=== PATIENT | female | born 1990 | race Caucasian/White ===

== ENCOUNTER 2016-08-16 00:37 | Emergency (ER) | payer OTHER ==
[~2016-08-16] VITALS: Ht 167.6 cm; Wt 127.0 kg
[~2016-08-16 00:37] MED LIST: DEPO150I IM; PERC5TAB12 PO; ZOFR4TAB3 SL
[2016-08-16 01:18] VITALS: BP 140/78; PULSE 83; RESP 18; TEMP 98.4; O2SAT 98
[2016-08-16 02:10] VITALS: O2SAT 98
[2016-08-16 02:12] LABS: AUTOMATED NEUTROPHIL # 8.2 TH/MM3 (1.8-7.7); BASOPHIL # 0.2 TH/MM3 (0-0.2); BASOPHIL % 1.5 % (0.0-2.0); EOSINOPHIL # 0.1 TH/MM3 (0-0.4); EOSINOPHIL % 0.7 % (0.0-4.0); HEMATOCRIT 42.6 % (35.0-46.0); LYMPH % 24.5 % (9.0-44.0); MEAN CELL VOLUME 81.9 FL (80.0-100.0); MEAN CORPUSCULAR HEMOGLOBIN 27.1 PG (27.0-34.0); MEAN CORPUSCULAR HGB CONC 33.1 % (32.0-36.0); MONO % 6.6 % (0.0-8.0); NEUT % 66.7 % (16.0-70.0); PLATELET COUNT 324 TH/MM3 (150-450); RED BLOOD COUNT 5.21 MIL/MM3 (4.00-5.30); RED CELL DISTRIBUTION WIDTH 12.4 % (11.6-17.2); WHITE BLOOD COUNT 12.4 TH/MM3 (4.0-11.0)
[2016-08-16 02:13] LABS: BLOOD, URINE NEG (NEG); GLUCOSE,URINE NEG (NEG); KETONE, URINE NEG (NEG); NITRITE,URINE NEG (NEG); PH, URINE 5.5 (5.0-8.5)
[2016-08-16 02:15] LABS: HEMO FLAGS DIFF FINAL
[2016-08-16 02:16] LABS: URINE COLOR YELLOW (YELLW/STRAW)
[2016-08-16 02:19] LABS: RBC, URINE 0-2 /hpf (0-3)
[2016-08-16 02:20] LABS: BACTERIA, URINE OCC /hpf; COMMENT (UR) CULT NOT INDICATED; CULTURE IF INDICATED CULT NOT INDICATED; SQUAMOUS EPITHELIAL CELL URINE > 8 /hpf (0-5)
[2016-08-16 02:22] LABS: CHLORIDE 107 MEQ/L (98-107); POTASSIUM 3.9 MEQ/L (3.5-5.1); SODIUM (NA) 141 MEQ/L (136-145)
[2016-08-16 02:26] LABS: ANION GAP 11 MEQ/L (5-15); BICARBONATE 22.7 MEQ/L (21.0-32.0)
[2016-08-16 02:27] LABS: BLOOD UREA NITROGEN 21 MG/DL (7-18)
[2016-08-16 02:29] LABS: ALT (GPT) 73 U/L (10-53); AST (GOT) 82 U/L (15-37); GLOMERULAR FILTRATION RATE 67 ML/MIN (>89)
[2016-08-16 02:31] LABS: TOTAL BILIRUBIN ADULT 0.6 MG/DL (0.2-1.0)
[2016-08-16 02:32] LABS: ALKALINE PHOSPHATASE 101 U/L (45-117)
--- NOTE | 2016-08-16 02:51 | PD ---
HPI Chief Complaint: Abdominal Pain Time Seen by Provider: 02:37 Travel History International Travel<30 days: No Contact w/Intl Traveler<30days: No Traveled to known affect area: No History of Present Illness HPI The patient is a 25-year-old female that complains of both right upper and left upper quadrant pain for one hour tonight. She does have nausea without vomiting or fever. She did know his that she has cholelithiasis, this was shown on ultrasound in April 2016. This ultrasound did not show any evidence for cholecystitis or biliary obstruction. She states she ate barbecue tonight and begin getting the pain shortly thereafter. PFSH Past Medical History Diminished Hearing: No Tetanus Vaccination: Unknown Influenza Vaccination: Yes ?: Not LMP: depo shots Past Surgical History Tonsillectomy: Yes Other Surgery: Yes (CYST REMOVALS) Social History Alcohol Use: Yes (RARE) Tobacco Use: No Substance Use: No Allergies-Medications (Allergen,Severity, Reaction): Coded Allergies: Red Dyes - Various (Unverified Allergy, Severe, Anaphylaxis, 08/16/16) Reported Meds & Prescriptions Reported Meds & Active Scripts Active Percocet (Oxycodone-Acetaminophen) 5-325 mg Tab 1 Tab PO Q6H PRN Review of Systems Except as stated in HPI: all other systems reviewed are Neg Physical Exam Narrative GENERAL: The patient is obese, alert, oriented 3 in moderate apparent distress with her abdominal pain which is primarily in the right upper quadrant. Her vital signs are normal. SKIN: Warm and dry. HEAD: Atraumatic. Normocephalic. EYES: Pupils equal and round. No scleral icterus. No injection or drainage. ENT: No nasal bleeding or discharge. Mucous membranes pink and moist. NECK: Trachea midline. No JVD. CARDIOVASCULAR: Regular rate and rhythm. No murmur appreciated. RESPIRATORY: No accessory muscle use. Clear to auscultation. Breath sounds equal bilaterally. GASTROINTESTINAL: Abdomen soft, with tenderness to direct palpation in the right upper quadrant, nondistended. Hepatic and splenic margins not palpable. No guarding or rebound is present. Jimenez's sign is negative. MUSCULOSKELETAL: No obvious deformities. No clubbing. No cyanosis. No edema. NEUROLOGICAL: Awake and alert. No obvious cranial nerve deficits. Motor grossly within normal limits. Normal speech. PSYCHIATRIC: Appropriate mood and affect; insight and judgment normal. Data Data Last Documented VS Vital Signs Date Time Temp Pulse Resp B/P Pulse Ox O2 Delivery O2 Flow Rate FiO2 08/16/16 02:10 98 Room Air 08/16/16 01:22 18 08/16/16 01:18 98.4 83 140/78 Orders Electrocardiogram (08/16/16 ) Complete Blood Count With Diff (08/16/16 01:58) Comprehensive Metabolic Panel (08/16/16 01:58) Urinalysis - C+S If Indicated (08/16/16 01:58) Iv Access Insert/Monitor (08/16/16 01:58) Oxygen Administration (08/16/16 01:58) Oximetry (08/16/16 01:58) Lipase (08/16/16 01:58) Us Abdomen Gallbladder (08/16/16 02:46) Ondansetron Inj (Zofran Inj) (08/16/16 03:30) Labs Laboratory Tests Test 08/16/16 01:50 White Blood Count 12.4 TH/MM3 Red Blood Count 5.21 MIL/MM3 Hemoglobin 14.1 GM/DL Hematocrit 42.6 % Mean Corpuscular Volume 81.9 FL Mean Corpuscular Hemoglobin 27.1 PG Mean Corpuscular Hemoglobin 33.1 % Concent Red Cell Distribution Width 12.4 % Platelet Count 324 TH/MM3 Mean Platelet Volume 8.5 FL Neutrophils (%) (Auto) 66.7 % Lymphocytes (%) (Auto) 24.5 % Monocytes (%) (Auto) 6.6 % Eosinophils (%) (Auto) 0.7 % Basophils (%) (Auto) 1.5 % Neutrophils # (Auto) 8.2 TH/MM3 Lymphocytes # (Auto) 3.0 TH/MM3 Monocytes # (Auto) 0.8 TH/MM3 Eosinophils # (Auto) 0.1 TH/MM3 Basophils # (Auto) 0.2 TH/MM3 CBC Comment DIFF FINAL Differential Comment Urine Color YELLOW Urine Turbidity CLEAR Urine pH 5.5 Urine Specific [place] 1.025 Urine Protein NEG mg/dL Urine Glucose (UA) NEG mg/dL Urine Ketones NEG mg/dL Urine Occult Blood NEG Urine Nitrite NEG Urine Bilirubin NEG Urine Leukocyte Esterase TRACE Urine RBC 0-2 /hpf Urine WBC 3-5 /hpf Urine Squamous Epithelial > 8 /hpf Cells Urine Bacteria OCC /hpf Microscopic Urinalysis Comment CULT NOT INDICATED Sodium Level 141 MEQ/L Potassium Level 3.9 MEQ/L Chloride Level 107 MEQ/L Carbon Dioxide Level 22.7 MEQ/L Anion Gap 11 MEQ/L Blood Urea Nitrogen 21 MG/DL Creatinine 1.00 MG/DL Estimat Glomerular Filtration 67 ML/MIN Rate Random Glucose 99 MG/DL Calcium Level 8.6 MG/DL Total Bilirubin 0.6 MG/DL Aspartate Amino Transf 82 U/L (AST/SGOT) Alanine Aminotransferase 73 U/L (ALT/SGPT) Alkaline Phosphatase 101 U/L Total Protein 7.4 GM/DL Albumin 3.7 GM/DL Lipase 239 U/L MDM Medical Decision Making Medical Screen Exam Complete: Yes Emergency Medical Condition: Yes Medical Record Reviewed: Yes Interpretation(s) The ultrasound shows cholelithiasis without any evidence of cholecystitis. There are several stones in the gallbladder. There is no evidence for biliary obstruction either. The CBC shows a white count of 12,400 but is otherwise normal. The complete metabolic profile shows a BUN of 21, GFR 67, AST of 82, ALT of 73 but is otherwise normal. The lipase is normal. Differential Diagnosis Acute cholecystitis, pancreatitis, cholelithiasis with colic Narrative Course It is now 0331 and the patient's pain is minimal at this time. She does have nausea however. The ultrasound does not show acute cholecystitis. The urine shows trace leukocyte esterase with 3-5 white cells and 0-2 red cells and culture is not indicated. Impression: Cholelithiasis with colic. Plan: The patient is having trouble arranging or even speaking to a surgeon. I discussed the patient with Dr. ellison and Dr. ellison graciously agreed to see the patient in his office later on today. Diagnosis Primary Impression: Cholelithiasis Additional Instructions: Follow-up with Dr. ellison as we discussed, call his office at 9 AM tomorrow morning and take your laboratory/imaging results Disposition: DISCHARGE HOME Condition: Stable Watson Katz MD Aug 16, 2016 02:51
[2016-08-16] MEDS ORDERED: ONDANSETRON HCL 4 MG/2 ML VIAL IV ONE (03:30)
[2016-08-16 03:35] VITALS: BP 149/97; PULSE 72; RESP 18; O2SAT 98
--- NOTE | 2016-08-16 03:51 | RADHPO ---
EXAM DATE/TIME: 08/16/2016 03:15 [facility] COMPARISON: US ABDOMEN - GALLBLADDER, April 19, 2016, 23:47. INDICATIONS : Right upper quadrant pain. MEDICAL HISTORY : Cholelithiasis. SURGICAL HISTORY : Tonsillectomy. ENCOUNTER: Subsequent ACUITY: 2 weeks PAIN SCORE: 3/10 LOCATION: Right upper quadrant MEASUREMENTS: LIVER: 14.9 cm length COMMON DUCT: 2 mm RIGHT KIDNEY: 10.0 x 3.8 x 6.3 cm FINDINGS: LIVER: Normal echotexture without focal lesion or ductal dilatation. Normal flow velocity and direction in t he main portal vein. COMMON DUCT: No intraluminal mass or stone visualized. GALLBLADDER: Gallbladder is contracted and contains probably at least 2 stones, one estimated at 14 mm and the oth er 18 mm in size. No gallbladder wall thickening or pericholecystic fluid demonstrated. Negative sono graphic Jimenez's on. PANCREAS: The visualized portions are within normal limits. RIGHT KIDNEY: No evidence of hydronephrosis, stone, or mass. CONCLUSION: Cholelithiasis without evidence of cholecystitis or biliary obstruction. Apollo Hensley MD on August 16, 2016 at 3:48 Board Certified Radiologist. This report was verified electronically.
--- NOTE | 2016-08-17 08:54 | EKG ---
Date Performed: 08/16/2016 Time Performed: 00:46:36 PTAGE: 25 years EKG: Possible ectopic atrial rhythm Borderline ECG PREVIOUS TRACING : 04/19/2016 18.25 Since previous tracing, no significant change noted DOCTOR: Papo Velez Interpretating Date/Time 08/17/2016 08:53:20
[2016-08-27] MEDS ORDERED: DEPO150I IM (11:44)
[2016-11-04] MEDS ORDERED: DEPO150I IM (17:20)
[2016-11-19] MEDS ORDERED: DEPO150I IM (09:27)
== END 2016-08-16 04:13 | disposition home or self-care (01) ==
LOC: PHED 00:37
DX: K80.20 Calculus of gallbladder without cholecystitis without obstruction (principal); R94.31 Abnormal electrocardiogram [ECG] [EKG]
CPT/HCPCS: 76705; 80053; 81001; 83690; 85025; 93005; 96374; 99284; J2405

== ENCOUNTER 2016-09-01 18:20 | Emergency (ER) | payer OTHER ==
[~2016-09-01 18:20] MED LIST changes: -DEPO150I IM; -ZOFR4TAB3 SL
[2016-09-01 18:28] VITALS: BP 159/99; PULSE 90; RESP 20; TEMP 97.7; O2SAT 100
--- NOTE | 2016-09-01 19:04 | PD ---
HPI Chief Complaint: Abdominal Pain Time Seen by Provider: 18:58 Travel History International Travel<30 days: No Contact w/Intl Traveler<30days: No Traveled to known affect area: No History of Present Illness HPI 25-year-old female with gallstones, scheduled for cholecystectomy with Dr. Royce Marinelli a week from Friday, here for evaluation of right upper quadrant abdominal pain stating that her gallbladder is hurting her. She tried taking her hydrocodone at home without relief of symptoms. She states that she gets a couple of flares per week, however this one has not been subsiding. Pain started shortly after eating a peanut butter cookie. No fevers or chills. She has had nausea but no vomiting. No history of abdominal surgeries. Pain is moderate, constant, worse with movement and palpation. PFSH Past Medical History Diminished Hearing: No LMP: DEPO SHOT Past Surgical History Tonsillectomy: Yes Other Surgery: Yes (CYST REMOVALS) Social History Alcohol Use: Yes (RARE) Tobacco Use: No Substance Use: No Allergies-Medications (Allergen,Severity, Reaction): Coded Allergies: Red Dyes - Various (Unverified Allergy, Severe, Anaphylaxis, 09/01/16) Reported Meds & Prescriptions Reported Meds & Active Scripts Active Percocet (Oxycodone-Acetaminophen) 5-325 mg Tab 1 Tab PO Q6H PRN Reported Zofran (Ondansetron HCl) 4 Mg Tab 4 Mg PO Q6HR PRN Review of Systems Except as stated in HPI: all other systems reviewed are Neg Physical Exam Narrative GENERAL: Well-developed, well-nourished, overweight, comfortable, no acute distress. SKIN: Warm and dry. No rash. HEAD: Atraumatic. Normocephalic. EYES: Pupils equal and round. No scleral icterus. No injection or drainage. ENT: Mucous membranes pink and moist. CARDIOVASCULAR: Regular rate and rhythm. No murmur appreciated. RESPIRATORY: No accessory muscle use. Clear to auscultation. Breath sounds equal bilaterally. GASTROINTESTINAL: Abdomen soft, nondistended. Moderate Right upper quadrant tenderness with Jimenez sign. Mild epigastric tenderness. Rest of abdomen is soft and nontender. No peritoneal signs. MUSCULOSKELETAL: No obvious deformities. No clubbing. No cyanosis. No edema. NEUROLOGICAL: Awake and alert. No obvious cranial nerve deficits. Motor grossly within normal limits. Normal speech. PSYCHIATRIC: Appropriate mood and affect; insight and judgment normal. Data Data Last Documented VS Vital Signs Date Time Temp Pulse Resp B/P Pulse Ox O2 Delivery O2 Flow Rate FiO2 09/01/16 19:40 18 09/01/16 19:25 89 147/81 98 Room Air 09/01/16 18:28 97.7 Orders Beta Hcg (Quant/Titer) (09/01/16 19:01) Complete Blood Count With Diff (09/01/16 19:01) Comprehensive Metabolic Panel (09/01/16 19:01) Lipase (09/01/16 19:01) Prothrombin Time / Inr (Pt) (09/01/16 19:01) Act Partial Throm Time (Ptt) (09/01/16 19:01) Us Abdomen Gallbladder (09/01/16 ) Iv Access Insert/Monitor (09/01/16 19:01) Ecg Monitoring (09/01/16 19:01) Oximetry (09/01/16 19:01) Morphine Inj (Morphine Inj) (09/01/16 19:15) Ondansetron Inj (Zofran Inj) (09/01/16 19:15) Sodium Chloride 0.9% Flush (Ns Flush) (09/01/16 19:15) Morphine Inj (Morphine Inj) (09/01/16 20:45) Labs Laboratory Tests Test 09/01/16 19:25 White Blood Count 10.2 TH/MM3 Red Blood Count 5.02 MIL/MM3 Hemoglobin 13.9 GM/DL Hematocrit 41.3 % Mean Corpuscular Volume 82.3 FL Mean Corpuscular Hemoglobin 27.6 PG Mean Corpuscular Hemoglobin 33.5 % Concent Red Cell Distribution Width 12.5 % Platelet Count 324 TH/MM3 Mean Platelet Volume 8.5 FL Neutrophils (%) (Auto) 52.0 % Lymphocytes (%) (Auto) 38.0 % Monocytes (%) (Auto) 8.7 % Eosinophils (%) (Auto) 0.8 % Basophils (%) (Auto) 0.5 % Neutrophils # (Auto) 5.2 TH/MM3 Lymphocytes # (Auto) 3.9 TH/MM3 Monocytes # (Auto) 0.9 TH/MM3 Eosinophils # (Auto) 0.1 TH/MM3 Basophils # (Auto) 0.1 TH/MM3 CBC Comment DIFF FINAL Differential Comment Prothrombin Time 11.0 SEC Prothromb Time International 1.0 RATIO Ratio Activated Partial 28.4 SEC Thromboplast Time Sodium Level 141 MEQ/L Potassium Level 3.6 MEQ/L Chloride Level 109 MEQ/L Carbon Dioxide Level 23.1 MEQ/L Anion Gap 9 MEQ/L Blood Urea Nitrogen 16 MG/DL Creatinine 0.85 MG/DL Estimat Glomerular Filtration 80 ML/MIN Rate Random Glucose 89 MG/DL Calcium Level 8.5 MG/DL Total Bilirubin 0.2 MG/DL Aspartate Amino Transf 17 U/L (AST/SGOT) Alanine Aminotransferase 36 U/L (ALT/SGPT) Alkaline Phosphatase 97 U/L Total Protein 6.9 GM/DL Albumin 3.6 GM/DL Lipase 234 U/L Human Chorionic Gonadotropin, LESS THAN 1 Quant MIU/ML MDM Medical Decision Making Medical Screen Exam Complete: Yes Emergency Medical Condition: Yes Medical Record Reviewed: Yes Differential Diagnosis Biliary colic, cholecystitis, cholelithiasis, peptic ulcer disease, pancreatitis Narrative Course Vital signs show heart rate 90, blood pressure 159/99, pulse ox 100% on room air , oral temp of 97.7F. CBC is unremarkable. CMP is unremarkable. Lipase is 234. Beta hCG is negative. Right upper quadrant ultrasound: CONCLUSION: 1. Cholelithiasis without gallbladder wall thickening or pericholecystic fluid. Patient was made aware of all findings. She is resting comfortably. Initial morphine dose resolved the pain, however it seems to be returning. I will give her another dose of morphine. At this point I believe she is stable for discharge home and follow-up with her surgeon next Friday for cholecystectomy. She was informed on what foods to avoid eating. She was informed on when to return to the emergency department. She verbalizes understanding and agreement with plan. Diagnosis Primary Impression: Cholelithiasis Qualified Code: K80.20 - Calculus of gallbladder without cholecystitis without obstruction Additional Impression: Biliary colic Referrals: Royce Marinelli MD 1 week Additional Instructions: Follow-up with Dr. Marinelli in one week as scheduled for gallbladder removal. Return to the emergency department for worsening symptoms or any other concerns. Disposition: 01 DISCHARGE HOME Condition: Stable Baldomero Ace MD Sep 01, 2016 19:04
[2016-09-01 19:05] VITALS: O2SAT 98
[2016-09-01] MEDS ORDERED: ONDANSETRON HCL 4 MG/2 ML VIAL IVP ONE (19:15)
[2016-09-01] MEDS ORDERED: MORPHINE SULFATE 4 MG/ML INJ IV PUSH ONE ×2 (19:15→20:45)
[2016-09-01] MEDS ORDERED: SODIUM CHLORIDE 0.9% FLUSH 5 ML FLUSH IVF PRN (19:15)
[2016-09-01 19:25] VITALS: BP 147/81; PULSE 89; RESP 18; O2SAT 98
[2016-09-01 19:58] LABS: AUTOMATED NEUTROPHIL # 5.2 TH/MM3 (1.8-7.7); BASOPHIL # 0.1 TH/MM3 (0-0.2); BASOPHIL % 0.5 % (0.0-2.0); EOSINOPHIL # 0.1 TH/MM3 (0-0.4); EOSINOPHIL % 0.8 % (0.0-4.0); HEMATOCRIT 41.3 % (35.0-46.0); HEMO FLAGS DIFF FINAL; LYMPHOCYTE # 3.9 TH/MM3 (1.0-4.8); MEAN CELL VOLUME 82.3 FL (80.0-100.0); MEAN CORPUSCULAR HEMOGLOBIN 27.6 PG (27.0-34.0); MEAN CORPUSCULAR HGB CONC 33.5 % (32.0-36.0); MONO % 8.7 % (0.0-8.0); PLATELET COUNT 324 TH/MM3 (150-450); RED BLOOD COUNT 5.02 MIL/MM3 (4.00-5.30); RED CELL DISTRIBUTION WIDTH 12.5 % (11.6-17.2); WHITE BLOOD COUNT 10.2 TH/MM3 (4.0-11.0)
[2016-09-01 20:08] LABS: CHLORIDE 109 MEQ/L (98-107); POTASSIUM 3.6 MEQ/L (3.5-5.1); SODIUM (NA) 141 MEQ/L (136-145)
[2016-09-01 20:12] LABS: ANION GAP 9 MEQ/L (5-15); BICARBONATE 23.1 MEQ/L (21.0-32.0); BLOOD UREA NITROGEN 16 MG/DL (7-18)
[2016-09-01 20:13] LABS: APTT (PATIENT) 28.4 SEC (24.3-30.1)
[2016-09-01 20:15] LABS: ALT (GPT) 36 U/L (10-53); AST (GOT) 17 U/L (15-37); GLOMERULAR FILTRATION RATE 80 ML/MIN (>89)
[2016-09-01 20:16] LABS: TOTAL BILIRUBIN ADULT 0.2 MG/DL (0.2-1.0)
[2016-09-01] MEDS ORDERED: ZOFR4TAB PO (20:17)
[2016-09-01 20:18] LABS: ALKALINE PHOSPHATASE 97 U/L (45-117)
[2016-09-01 20:20] LABS: BETA HCG QUANT LESS THAN 1 MIU/ML (0-5)
[2016-09-01 20:30] VITALS: BP 146/75; PULSE 67; RESP 18; O2SAT 99
--- NOTE | 2016-09-01 20:36 | RADHPO ---
EXAM DATE/TIME: 09/01/2016 20:04 [facility] COMPARISON: US ABDOMEN - GALLBLADDER, August 16, 2016, 3:15. INDICATIONS : Right upper quadrant pain. MEDICAL HISTORY : Cholelithiasis. SURGICAL HISTORY : Tonsillectomy. ENCOUNTER: Subsequent ACUITY: 1 month PAIN SCORE: 10/10 LOCATION: Right upper quadrant MEASUREMENTS: LIVER: 15.2 cm length COMMON DUCT: 5 mm RIGHT KIDNEY: 10.0 x 4.7 x 6.1 cm FINDINGS: LIVER: Normal echotexture without focal lesion or ductal dilatation. Hepatopedal flow. COMMON DUCT: No intraluminal mass or stone visualized. GALLBLADDER: Contains several echogenic stones, demonstrates no wall thickening or pericholecystic fluid. PANCREAS: The visualized portions are within normal limits. RIGHT KIDNEY: No evidence of hydronephrosis, stone, or mass. CONCLUSION: 1. Cholelithiasis without gallbladder wall thickening or pericholecystic fluid. Jay Moncada MD on September 01, 2016 at 20:31 Board Certified Radiologist. This report was verified electronically.
[2016-09-01 21:19] VITALS: RESP 18
[2016-09-01 21:31] VITALS: BP 136/85
[2016-11-04] MEDS ORDERED: DEPO150I IM (17:20)
[2016-11-19] MEDS ORDERED: DEPO150I IM (09:27)
== END 2016-09-01 21:35 | disposition home or self-care (01) ==
LOC: PHED 18:20
DX: K80.20 Calculus of gallbladder without cholecystitis without obstruction (principal)
CPT/HCPCS: 76705; 80053; 83690; 84702; 85025; 85610; 85730; 96374; 96375; 96376; 99284; J2270; J2405

== ENCOUNTER → 2016-09-05 | Day surgery (SDC) | payer OTHER ==
[~2016-09-05] MED LIST changes: +BUPIVACAINE/EPINEPHRINE 0.25% 50 ML VIAL ONE; +DEPO150I IM; +KETOROLAC TROMETHAMINE 30 MG/ML (IVP) VIAL IV PUSH ONE; +LACTATED RINGER'S 1000 ML INJ 1,000 ML ONE; +MEPERIDINE HCL 50 MG/ML VIAL ONE; +MIDAZOLAM HCL 2 MG/2 ML VIAL ONE; +ONDANSETRON HCL 4 MG/2 ML VIAL IV PUSH ONE; +PROPOFOL 200 MG/20 ML AMP IV ONE; +ZOFR4TAB PO; +ceFAZolin 2 GM PREMIX 50 ML ONE
--- NOTE | 2016-09-05 11:40 | TN ---
cc: SHELTON JENKINS DATE OF SURGERY 09/05/2016 PREOPERATIVE DIAGNOSIS 1. Symptomatic cholelithiasis 2. Chronic cholecystitis POSTOPERATIVE DIAGNOSIS 1. Symptomatic cholelithiasis 2. Chronic cholecystitis PROCEDURE PERFORMED Laparoscopic cholecystectomy SURGEON Shelton Jenkins MD LINK TRAINER VINCE [place] ANESTHESIA General endotracheal COMPLICATIONS None INDICATIONS FOR THE PROCEDURE Ms. Carreon is a very pleasant 25-year-old obese female who has had problems chronic right upper quadrant pain. This is mostly after she eats fatty of greasy periods. She was sent for an ultrasound which showed multiple gallstones. She was referred for consideration of cholecystectomy. The risks and benefits of open and laparoscopic cholecystectomy was discussed with her and she was agreeable to proceed. DETAILS The patient was identified, brought to the operating room, placed supine on the operating room table. After adequate general endotracheal anesthesia was achieved, the abdomen was prepped and draped in standard surgical fashion. The infraumbilical space anesthetized with quarter percent Marcaine. An infraumbilical incision was made. Dissection was carried down through the subcutaneous tissue to the midline fascia. The midline fascia was then incised sharply. A finger was then placed in the peritoneal cavity without difficulty. Blunt balloon trocar was inserted and the abdomen was insufflated to 15 mmHg using CO2 gas. Next, two 5 mm trocars were placed in the right upper quadrant after anesthetizing the skin and subcutaneous tissue with 0.25% Marcaine. Attention was directed to the gallbladder which was easily identified. The gallbladder was noted to be slightly enlarged and thickened. The gallbladder was retracted cephalad. Gallbladder neck was then carefully dissected. Cystic artery and cystic duct were clearly identified in two planes. Once they were seen in two planes, they were clipped twice proximally, once distally and then divided. There was a small arterial bleeder adjacent to the cystic artery which was likely a small branch and this was clipped singly with a 5 mm clip and this stopped the bleeding. The gallbladder was then dissected out of the hepatic fossa using electrocautery Bovie. The gallbladder was placed in an Endopouch bag and brought out through the infraumbilical port. The gallbladder was inspected and found to contain multiple stones with clips in place on the cystic duct stump without evidence of leakage of bile. The gallbladder sent to pathology for analysis. Next, the abdomen was revisualized. The liver bed was completely hemostatic. Clips on the cystic artery were intact and there was no evidence of bleeding. This was suctioned irrigated several times and no bleeding was noted. Clips were visualized on the cystic duct stump and there is no evidence of leakage of bile. The abdominal cavity was then rinsed out with one liter of warm saline solution. The effluent was noted to be clear. The clips were again checked on the cystic artery and there was no evidence of bleeding. The liver bed was completely hemostatic. The abdomen was then desufflated. All ports removed under direct vision. The midline fascia was repaired with a 0 Vicryl in an interrupted fashion. Skin was closed with 4-0 Vicryl. The patient tolerated the procedure well, was awakened and brought to recovery in stable condition. Please note the [employer] The [employer] assistant principal was medically necessary due to her specialized surgical skills as well as the knowledge of my surgical technique. MD CASSIDY Laughlin/JERMAN /11:16 AM 11:33 AM ARIANA
== END | disposition home or self-care (01) ==
LOC: ESDC 09:16
PROVIDERS: ATTEND Surgery Trauma Surgery
DX: K80.10 Calculus of gallbladder with chronic cholecystitis without obstruction (principal)
CPT/HCPCS: 00790; 47562; 88304; J0690; J1885; J2175; J2250; J2405; J3010; J7120